=== PATIENT | female | born 1965 | race Caucasian/White ===

== ENCOUNTER 2018-04-14 18:15 | Emergency (ER) | payer OTHER ==
[2018-04-14] MEDS ORDERED: IBUPROFEN 600 MG TABLET (FP) PO ONE ×2 (18:20)
[2018-04-14 18:34] VITALS: BP 149/75; PULSE 65; TEMP 98.4; BMI 20.9
--- NOTE | 2018-04-14 18:49 | PDOC ---
History of Present Illness - General Chief Complaint: Pain, Acute Stated Complaint: LEFT 5TH TOE PAIN Time Seen by Provider: 04/14/18 18:20 History Source: Patient Exam Limitations: No Limitations - History of Present Illness Initial Comments: 04/14/18 18:46 52 yo F s/p trip and fall down last few steps c/o right small toe injury. happened just prior to arriva. initially noted significant toe deformity. she squeezed it back into place. now has severe pain in right small toe. did not hit head in fall. no loc. mild low back pain. no loc no n/v has ambulating with difficulty since fall. miller moderate. did note associated eccymosis, no swelling. no numbness or tingling. Past History - Past Medical History Allergies/Adverse Reactions: Allergies Allergy/AdvReac Type Severity Reaction Status Date / Time No Known Allergies Allergy Verified 04/14/18 18:16 Home Medications: Ambulatory Orders No Home Medications 0 dose .ROUTE UTDICT 12/17/12 Ibuprofen 600 mg PO TID PRN #90 tablet MDD 3 04/14/18 Anemia: No Asthma: No Cardiac Disorders: No CVA: No COPD: No Diabetes: No HTN: No Hypercholesterolemia: No - Suicide/Smoking/Psychosocial Hx Smoking Status: No Smoking History: Never smoked Number of Cigarettes Smoked Daily: 0 Hx Alcohol Use: Yes Drug/Substance Use Hx: No Substance Use Type: Alcohol Review of Systems - Review of Systems Constitutional: No: Chills, Diaphoresis Respiratory: No: Cough, Orthopnea Musculoskeletal: Yes: Back Pain, Joint Pain Integumentary: No: Bruising, Change in Color Neurological: No: Headache, Numbness All Other Systems: Reviewed and Negative *Physical Exam - Vital Signs Last Vital Signs Temp Pulse Resp BP Pulse Ox 98.4 F 65 16 149/75 100 04/14/18 18:15 04/14/18 18:15 04/14/18 18:15 04/14/18 18:15 04/14/18 18:15 - Physical Exam Comments: 04/14/18 18:47 awake alert head atraumatic. no mildline spinal tenderness. lungs clear bilaterally heart rrr no mrg. abd soft nt nd. ext wwp. left lateral foot small toe with ttp over distal mtp joint and prox phalynx. mild eccymosis noted. ttp over distal mtp jiont and prox phalynx. nv intact. ankle NT FROM knee NT FROM. ED Treatment Course - RADIOLOGY Radiology Studies Ordered: Category Date Time Status FOOT-LEFT [RAD] Stat Radiology 04/14/18 18:20 Ordered - Medications Given in the ED: ED Medications Discontinued Medications Generic Name Dose Route Start Last Admin Trade Name Freq PRN Reason Stop Dose Admin Ibuprofen 600 mg 04/14/18 18:20 04/14/18 18:23 Motrin - PO 04/14/18 18:21 600 mg ONCE ONE Administration Medical Decision Making - Medical Decision Making 04/14/18 18:49 differential fx vs. dislocation 04/14/18 19:05 xray shows toe fracture. gretta tape crutches and elizabet richards followup. *DC/Admit/Observation/Transfer Diagnosis at time of Disposition: Toe fracture - Discharge Dispostion Disposition: HOME Condition at time of disposition: Improved - Prescriptions Prescriptions: Ibuprofen 600 mg PO TID PRN #90 tablet MDD 3 PRN Reason: Pain - Referrals Referrals: Ciro Richards MD [Staff Physician] - - Patient Instructions Printed Discharge Instructions: Toe Fracture Additional Instructions: You should keep your toes taped for comfort. Take ibuprofen 600 mg every 8 hrs as needed for pain. ice and elevate. you can follow up with Dr. Richards call to schedule within one week. use crutches as needed for pain. - Post Discharge Activity
== END 2018-04-14 19:22 | disposition home or self-care (01) ==
LOC: FER 18:15
PROC: 2W3VXYZ Immobilization of Left Toe using Other Device (ICD-10-PCS; principal; 2018-04-14)
DX: S92.505A Nondisplaced unspecified fracture of left lesser toe(s), initial encounter for closed fracture (principal); W10.8XXA Fall (on) (from) other stairs and steps, initial encounter; Y93.89 Activity, other specified; Y92.9 Unspecified place or not applicable
CPT/HCPCS: 73630-TC-LT; 99282-25